=== PATIENT | female | born 1960 | race Caucasian/White ===

== ENCOUNTER → 2016-12-17 | Outpatient (CLI) | payer OTHER ==
--- NOTE | 2016-12-17 13:38 | RADIOLOGY REPORT (SQ) ---
EXAM DESCRIPTION: VENOUS UNILATERAL LOWER COMPLETED DATE/TIME: 12/17/2016 12:57 pm REASON FOR STUDY: RLE POSITIVE D DIMER COMPARISON: None. TECHNIQUE: Dynamic and static engle scale and color images acquired of the right leg venous system. S elected spectral images acquired with additional compression and augmentation maneuvers. The contrala teral common femoral vein and saphenofemoral junction were also imaged. Images stored on PACS. LIMITATIONS: None. FINDINGS: COMMON FEMORAL: Normal phasicity, compression and augmentation. No visualized echogenic ma terial on engle scale. No defects on color images. FEMORAL: Normal compression and augmentation. No visualized echogenic material on engle scale. No defe cts on color images. POPLITEAL: Normal compression, augmentation. No visualized echogenic material on engle scale. No defec ts on color images. CALF VESSELS: Normal compression, augmentation. No visualized echogenic material on engle scale. No de fects on color images. GSV and SSV: Normal compression, augmentation. No visualized echogenic material on engle scale. No def ects on color images. ANY DEEP VENOUS INSUFFICIENCY: Not evaluated. ANY EVIDENCE OF POPLITEAL CYST: No. OTHER: No other significant finding. CONTRALATERAL COMMON FEMORAL VEIN AND SAPHENOFEMORAL JUNCTION: Normal phasicity, compression and augmentation. No visualized echogenic material on engle scale. No de fects on color images. IMPRESSION: NO EVIDENCE DVT OR SVT IN THE RIGHT LEG. TECHNICAL DOCUMENTATION: JOB ID: [id number] [email or web address] Rights Reserved
== END ==
LOC: LAB 09:29
DX: S83.21 Bucket-handle tear of medial meniscus, current injury (principal); M23.202 Derangement of unspecified lateral meniscus due to old tear or injury, unspecified knee
CPT/HCPCS: 36415; 85379; 93971